=== PATIENT | female | born 2000 | race Caucasian/White ===

== ENCOUNTER 2021-03-10 23:37 | Emergency (ER) | payer MEDICAID ==
[~2021-03-10] VITALS: Ht 170.2 cm; Wt 61.2 kg
[2021-03-11 00:02] VITALS: BP_SYST 140
--- NOTE | 2021-03-11 04:30 | NUR ---
MD RIC AT BEDSIDE.
[2021-03-11] MEDS ORDERED: KETOROLAC TROMETHAMINE 30 MG VIAL ONE (04:42)
--- NOTE | 2021-03-11 04:45 | NUR ---
PT TO ROOM. ALERT AND ORIENTED X 4. COMPLAINS OF LOWER BACK PAIN. REPORTS 4 YEAR HX OF LOWER BACK PAIN. REPORTS TAKING TYLENOL WITH NO RELIEF. RATES OVERALL PAIN 10/10. DENIES ANY OTHER MEDICAL HX OR SURGICAL HX. WILL CONTINUE TO MONITOR.
[2021-03-11] MEDS: KETOROLAC TROMETHAMINE 30 MG VIAL IM ONE (04:55)
[2021-03-11] MEDS: LIDOCAINE PATCH 5% 1 EA TP ONE (04:56)
--- NOTE | 2021-03-11 05:02 | NUR ---
MD MADE AWARE THAT LIDOCAINE PATCH NOT STOCKED IN ER. MD ORDERED LIDOCAINE PATCH PRESCRIPTION SENT TO OUTPATIENT PHARMACY FOR PT TO PICK-UP AFTER DC.
--- NOTE | 2021-03-11 05:02 | NUR ---
URINE SENT TO LAB. PT MEDICATED PER MD ORDERS. PLEASE SEE EMAR.
[2021-03-11] MEDS ORDERED: IBUP-1969 PO (05:05)
[2021-03-11] MEDS ORDERED: LIDO1ADH71 TP (05:05)
[2021-03-11 05:08] LABS: BILIRUBIN,URINE NEGATIVE (NEGATIVE); BLOOD, URINE NEGATIVE (NEGATIVE); CLARITY/URINE SL CLOUDY (CLEAR); COLOR,URINE YELLOW (YELLOW); GLUCOSE,URINE NEGATIVE (NEGATIVE); KETONES,URINE TRACE (NEGATIVE); LEUKOCYTE ESTERASE ,URINE 1+ (NEGATIVE); NITRITE, URINE NEGATIVE (NEGATIVE); PROTEIN URINE NEGATIVE (NEGATIVE); UROBILINOGEN,URINE 0.2 (0.2-1.0)
[2021-03-11 05:37] LABS: BACTERIA,URINE FEW /HPF (None Seen); RBC,URINE 0-3 /HPF (0-3)
[2021-03-11 05:42] VITALS: BP_SYST 94
--- NOTE | 2021-03-11 05:42 | NUR ---
Patient given written and verbal discharge instructions and verbalizes understanding. ER MD discussed with patient the results and treatment provided. Patient in stable condition. ID arm band removed. Rx of LIDOCAINE PATCH, MOTRINE given. Patient educated on pain management and to follow up with PMD. Pain Scale 4/10. Opportunity for questions provided and answered. Medication side effect fact sheet provided.
== END 2021-03-11 05:42 | disposition home or self-care (01) ==
LOC: SED 23:37
DX: G89.29 Other chronic pain (principal); M54.50 Low back pain, unspecified; Z79.899 Other long term (current) drug therapy
CPT/HCPCS: 81000; 81025; 87086; 96372; 99283; J1885